=== PATIENT | female | born 1975 | race Caucasian/White ===

== ENCOUNTER 2016-08-15 16:23 | Inpatient (IN) | payer MEDICAID ==
[~2016-08-15] VITALS: Ht 157.5 cm; Wt 116.8 kg
[2016-08-15 17:46] LABS: ADD SCAN DIFF NO
[2016-08-15 17:50] LABS: BASOPHILS % 0.4 % (0.0-2.0); EOSINOPHILS # 0.1 10^3/ul (0.0-0.5); EOSINOPHILS % 1.7 % (0.0-7.0); HEMATOCRIT 36.5 % (37.0-47.0); HEMOGLOBIN 12.8 g/dl (12.0-16.0); LYMPHOCYTES # 1.7 10^3/ul (0.8-2.9); LYMPHOCYTES % 24.7 % (15.0-51.0); MEAN CORPUSCULAR HGB CONC 35.1 g/dl (32.0-37.0); MEAN CORPUSCULAR VOLUME 96.8 fl (82.0-101.0); MEAN PLATELET VOLUME 9.7 fl (7.4-10.4); MONOCYTE # 0.8 10^3/ul (0.3-0.9); MONOCYTES % 10.7 % (0.0-11.0); NEUTROPHIL # 4.4 10^3/ul (1.6-7.5); NEUTROPHILS % 62.2 % (39.0-77.0); PLATELET COUNT 213 10^3/UL (140-415); RED BLOOD COUNT 3.77 10^6/ul (4.20-5.40); RED CELL DISTRIBUTION WIDTH 12.5 % (11.5-14.5)
--- NOTE | 2016-08-15 17:50 | RADRPT ---
PROCEDURE: US OB biophysical profile. CLINICAL INDICATION: decreased movements, PIH TECHNIQUE: Multiple sonographic images of the pelvis were obtained. The images were reviewed on a PACS workstation. COMPARISON: No prior studies are available for comparison. FINDINGS: There is a single viable intrauterine gestation. Cardiac activity is present with 156 beats per min [place]. There is a vertex presentation. The placenta is posterior. There is no evidence of placental abruption. There is a normal amount of amniotic fluid with an MISTY = 13.1 cm. Biophysical profile: movement 2/2 tone 2/2. breathing 2/2 MISTY 2/2 Total 10/24 RPTAT: AA . IMPRESSION: Normal biophysical profile. . .Alonso Parham MD, Date Time Electronically viewed and signed by .Alonso Parham MD, MD on 08/15/2016 17:50 .S/
--- NOTE | 2016-08-15 18:25 | HP ---
DATE OF ADMISSION: 08/15/2016 HISTORY OF PRESENT ILLNESS: A 40-year-old female 1, para 0, estimated date of delivery 09/12/2016, at 36 weeks' gestation, was admitted due to elevated blood pressure. The patient was noted to have blood pressure of 149/ 94 in the clinic. The patient denies any headache, visual disturbance, or epigastric pain. PAST MEDICAL HISTORY: Unremarkable. ALLERGIES: NO KNOWN ALLERGIES. FAMILY HISTORY: Diabetes. COURSE: Significant for gestational diabetes controlled by metformin. PHYSICAL EXAMINATION: VITAL SIGNS: The patient is afebrile. Her blood pressure is 130s to 140s systolic, diastolic 80s and 90s. HEAD, NECK AND CHEST: Within normal limits. ABDOMEN: Soft, nontender and gravid. EXTREMITIES: Within normal limits. NEUROLOGIC Within normal limits. IMPRESSION: at 36 weeks, gestational diabetes, rule out preeclampsia. PLAN: Admit. -induced hypertension panel and 24-hour urine collection. Dictated By: JEY GARCIA/AGGIE Conf#: [id number] DID#: [id number] MTDD
[2016-08-15 18:26] VITALS: BP 137/80; PULSE 67; RESP 24; Ht 157.5 cm; Wt 116.8 kg
[2016-08-15] MEDS ORDERED: PRENAT PO (18:29)
[2016-08-15] MEDS ORDERED: METF500T4 PO (18:29)
[2016-08-15] MEDS ORDERED: FERR325C PO (18:29)
[2016-08-15] MEDS ORDERED: ONDANSETRON 4 MG INJ IV PRN (18:30)
[2016-08-15] MEDS ORDERED: ACETAMINOPHEN 325 MG TAB PO PRN (18:30)
[2016-08-15] MEDS ORDERED: CALC600T11 PO (18:30)
[2016-08-15 18:36] LABS: ALBUMIN 3.7 g/dl (3.3-4.9); ALBUMIN/GLOBULIN RATIO 1.08; BILIRUBIN,INDIRECT 0.2 mg/dl (0-1.1); BILIRUBIN,TOTAL 0.2 mg/dl (0.2-1.3); CALCIUM 9.2 mg/dl (8.4-10.2); CREATININE 0.52 mg/dl (0.44-1.00); POTASSIUM 3.8 mmol/L (3.5-5.1); TOTAL PROTEIN 7.1 g/dl (6.1-8.1); URIC ACID 4.3 mg/dl (3.1-7.9)
[2016-08-15] MEDS ORDERED: GLUCOSE GEL 15 GRAM TUBE PO PRN ×2 (19:00)
[2016-08-15] MEDS ORDERED: DEXTROSE 50% 50 ML SYRINGE IV PRN ×2 (19:00)
[2016-08-15] MEDS ORDERED: GLUCAGON 1 MG INJ IM PRN (19:00)
[2016-08-15] MEDS ORDERED: GLUCOSE GEL 15 GRAM TUBE BUCCAL PRN (19:00)
--- NOTE | 2016-08-15 19:29 | TRIAGE ---
OB Triage Datetime Report Generated by CPN: 08/15/2016 19:29 Datetime: 08/15/2016 18:09 Stage of : OB Triage Maternal Assessment Level of Consciousness: Fully Conscious DTR's/Clonus: DTRs 2+; No Clonus Headache: Denies Blurred Vision: No Respiratory Effort: Unlabored; Regular Rhythm; Equal Expansion Breath Sounds, Left: Clear and Equal Breath Sounds, Right: Clear and Equal Nausea/Vomiting: Denies RUQ Epigastric Pain: Denies Lower Extremities Edema: Bilateral Lower Extremities Degree: 2+ Upper Extremities Edema: None Degree: None Facial Edema: None Temperature Route: Axillary Fall Risk Assessment History of Falling: (0) No Secondary Diagnosis: (0) No Ambulatory Aid: (0) Bedrest/Nurse Assist IV Therapy: (0) No Gait: (0) Normal/Bedrest/Immobile Mental Status: (0) Oriented to Own Ability Fall Score: 0 Fall Risk Score Definition: No Risk: No action required Datetime: 08/15/2016 18:07 Time of Arrival: 08/15/2016 16:19 EGA: 36.0 Arrived By: Ambulatory Arrived From: Home Chief Complaint: CAME IN ORDERS TO R/O PIH Movement: Present Contractions: Denies/Absent Rupture of Membranes: Denies Vaginal Bleeding: None Vaginal Discharge: Denies Recent Sexual Intercouse: Denies Abdominal Trauma: Not Applicable Patient Complaints: None Time Provider Notified: 08/15/2016 18:08 Provider Notified: DR. PONCE Initial Plan: NST , CMP, CBC, BPP, URIC ACID AND UA Datetime: 08/15/2016 18:04 Stage of : Antepartum Labor Evaluation Frequency: IRREG Monitor Mode: External Quality: Moderate Pattern: Normal: <= 5 Contractions in 10 Minutes Resting Tone Harvest: Relaxed Heart Rate FHR Baseline Rate: 135 Monitor Mode: External US Variability: Moderate 6-25 bpm Accelerations: 15X15 Decelerations: None Category: Category I
[2016-08-15] MEDS: ACCU-CHEK XX SCH (21:43)
[2016-08-15] MEDS: metFORMIN 500 MG TAB PO SCH (21:45)
[2016-08-15 22:04] LABS: ADD UMIC NO; URINE BILIRUBIN (Dip) NEGATIVE (NEGATIVE); URINE BLOOD (Dip) NEGATIVE (NEGATIVE); URINE COLOR LT. YELLOW (YELLOW); URINE GLUCOSE (Dip) NEGATIVE (NEGATIVE); URINE KETONES (Dip) 3+ (NEGATIVE); URINE LEUKOCYTE ESTERASE (Dip) NEGATIVE (NEGATIVE); URINE NITRITE (Dip) NEGATIVE (NEGATIVE); URINE TOTAL PROTEIN (Dip) NEGATIVE (NEGATIVE); URINE UROBILINOGEN (Dip) 0.2 E.U./dL (0.1-1.0)
[2016-08-16] MEDS: ACCU-CHEK XX SCH ×4 (08:20→20:07)
[2016-08-16] MEDS: MULTIVIT/MIN/FOLATE/IRON/PREN TAB PO SCH (11:08)
[2016-08-16] MEDS: FERROUS SULFATE (EC) 325 MG TAB PO SCH (11:08)
--- NOTE | 2016-08-16 20:32 | QN ---
Documentation Comment No complaint Afebrile BP 130's-170's/80's-90's Strip Reactive Plt, ALT and AST normal Await 24 hour urine collection Perinatology consult. JEY PONCE MD August 16, 2016 20:32
[2016-08-16 20:43] LABS: SCRET 0.52 mg/dl (0.44-1.00)
[2016-08-16] MEDS: metFORMIN 500 MG TAB PO SCH (21:17)
--- NOTE | 2016-08-16 23:08 | NSTRPT ---
NST Information Datetime Report Generated by CPN: 08/16/2016 23:08 Datetime: 08/15/2016 08:47 NST Information EGA: 36.0 Test Number: 6 Time on Monitor: 08/15/2016 09:08 Time off Monitor: 08/15/2016 09:31 NST Duration (Min): 23 Reason for NST: Diabetes Mellitus; Other Reason for NST Other: A2DM, Elevated Inhibin Test and Monitor Explained: Monitor Explained; Test Explained; Verbalized Understanding Pulse: 68 Resp: 16 SBP: 139 DBP: 84 Test Evaluation NST Interventions: Reposition Patient Patient States Movement: Present Contraction Frequency: x1, denies FHR Baseline : 130 Variability: Moderate 6-25bpm Accelerations: 15X15 Decelerations: None FHR Category: Category I NST Results: Reactive Comments: To u/s, MISTY 16.6cm, cephalic FBS 90 [id number] undelivered with labor precautions, kick count instructions reviewed, and follow up NST appt given. States understanding and denies further questions at this time. Electronically Signed By E-Signature: with User ID: [id number] Datetime: 08/08/2016 08:05 NST Information EGA: 35.0 NST Duration (Min): 32 Datetime: 08/04/2016 08:08 NST Information EGA: 34.3 NST Duration (Min): 29 Datetime: 08/01/2016 08:19 NST Information EGA: 34.0 NST Duration (Min): 26 Datetime: 07/27/2016 08:11 NST Information EGA: 33.2 NST Duration (Min): 22 Datetime: 07/24/2016 08:38 NST Information EGA: 32.6 Datetime: 07/24/2016 08:21 NST Duration (Min): 47
[2016-08-17] MEDS: ACCU-CHEK XX SCH (07:44)
[2016-08-17] MEDS: FERROUS SULFATE (EC) 325 MG TAB PO SCH (09:41)
[2016-08-17] MEDS: MULTIVIT/MIN/FOLATE/IRON/PREN TAB PO SCH (09:41)
--- NOTE | 2016-08-17 14:41 | DS ---
DATE OF ADMISSION: 08/15/2016 DATE OF DISCHARGE: 08/17/2016 ADMITTING DIAGNOSIS: Rule out preeclampsia. HISTORY: A 40-year-old female 1, para 0, estimated date of delivery 09/12/2016, at 36 weeks ' gestation was admitted due to elevated blood pressure. The patient's course is significa nt for gestational diabetes. The patient was admitted on 08/15/2016. The patient had workup with p regnancy-induced hypertension panel and 24-hour urine collection. The patient did not have any symp toms of severe features of preeclampsia. The results of the 24-hour urine collection: Total protei n over 500. Liver enzymes and platelets have been normal. The patient was evaluated by perinatolog ist, Dr. Rick, on 08/17/2016 and recommendation was to discharge the patient home and to deliver th e patient at 37 weeks. The patient is discharged on 08/18/2015. CONDITION ON DISCHARGE: Stable. DISCHARGE INSTRUCTIONS: 1. Diet: 2000 calorie ADA diet. 2. Activity: As tolerated. MEDICATIONS: Continue with: 1. Metformin. 2. vitamins. 3. Ferrous sulfate. FOLLOWUP: Follow up in antepartum unit on 08/18/2016. FINAL DIAGNOSES: 1. , not delivered. 2. Gestational diabetes. 3. Preeclampsia. Dictated By: JEY GARCIA/AGGIE Conf#: [id number] DID#: [id number]
== END 2016-08-17 14:50 | disposition home or self-care (01) | DRG 781 ==
LOC: OBT 16:23 → L-D 16:23 → OBT 18:05 → L-D 18:05 → OBG 20:33
PROVIDERS: ADMIT Obstetrics & Gynecology; ATTEND Obstetrics & Gynecology
DX: O14.93 Unspecified pre-eclampsia, third trimester (principal); O24.419 Gestational diabetes mellitus in pregnancy, unspecified control; O09.523 Supervision of elderly multigravida, third trimester; Z3A.36 36 weeks gestation of pregnancy
CPT/HCPCS: 76818; 80053; 81003; 82575; 82962; 84156; 84560; 85025

== ENCOUNTER 2016-08-22 08:00 | Inpatient (IN) | payer MEDICAID ==
[~2016-08-22] VITALS: Ht 157.5 cm; Wt 113.0 kg
[~2016-08-22 08:00] MED LIST: CALC600T11 PO; FERR325C PO; METF500T4 PO; PRENAT PO
[2016-08-22] MEDS ORDERED: BUTORPHANOL 2 MG INJ IV PRN (08:30)
[2016-08-22] MEDS ORDERED: MISOPROSTOL 200 MCG TAB PR PRN (08:30)
[2016-08-22] MEDS ORDERED: LACTATED RINGER'S 1,000 ML IV PRN (08:30)
[2016-08-22] MEDS ORDERED: METHYLERGONOVINE 0.2 MG INJ IM PRN (08:30)
[2016-08-22] MEDS ORDERED: AMPICILLIN 2 GM/NS (PMX) 100 ML IV ONE (08:30)
[2016-08-22] MEDS ORDERED: OXYTOCIN 30 UNITS/LR 500 ML IV PRN (08:30)
[2016-08-22] MEDS ORDERED: LIDOCAINE 1% (MPF) 30 ML INJ INJ PRN (08:30)
[2016-08-22] MEDS ORDERED: OXYTOCIN 30 UNITS/LR 500 ML IV SCH ×2 (08:30)
[2016-08-22] MEDS ORDERED: CARBOPROST 250 MCG INJ IM PRN (08:30)
[2016-08-22] MEDS: LACTATED RINGER'S 1,000 ML IV SCH ×2 (08:56→14:13)
[2016-08-22 09:20] LABS: ADD SCAN DIFF NO
[2016-08-22 09:24] LABS: BASOPHILS % 0.6 % (0.0-2.0); EOSINOPHILS # 0.1 10^3/ul (0.0-0.5); EOSINOPHILS % 1.8 % (0.0-7.0); HEMATOCRIT 34.8 % (37.0-47.0); HEMOGLOBIN 12.5 g/dl (12.0-16.0); LYMPHOCYTES # 1.8 10^3/ul (0.8-2.9); LYMPHOCYTES % 26.7 % (15.0-51.0); MEAN CORPUSCULAR HEMOGLOBIN 34.5 pg (29.0-33.0); MEAN CORPUSCULAR HGB CONC 35.9 g/dl (32.0-37.0); MEAN CORPUSCULAR VOLUME 96.1 fl (82.0-101.0); MEAN PLATELET VOLUME 9.9 fl (7.4-10.4); MONOCYTE # 0.7 10^3/ul (0.3-0.9); MONOCYTES % 11.1 % (0.0-11.0); NEUTROPHIL # 3.9 10^3/ul (1.6-7.5); NEUTROPHILS % 59.3 % (39.0-77.0); PLATELET COUNT 217 10^3/UL (140-415); RED BLOOD COUNT 3.62 10^6/ul (4.20-5.40); RED CELL DISTRIBUTION WIDTH 12.2 % (11.5-14.5); WHITE BLOOD COUNT 6.6 10^3/ul (4.8-10.8)
[2016-08-22 09:46] LABS: INR 0.95; PARTIAL THROMBOPLASTIN TIME 26.9 Sec (25.0-35.0); PROTIME 12.7 Sec (12.2-14.2)
[2016-08-22] MEDS: MISOPROSTOL 25 MCG CAPSULE PO SCH ×4 (10:11→22:27)
[2016-08-22 11:00] LABS: ALBUMIN 3.6 g/dl (3.3-4.9); ALBUMIN/GLOBULIN RATIO 1.09; BILIRUBIN,INDIRECT 0.4 mg/dl (0-1.1); BILIRUBIN,TOTAL 0.4 mg/dl (0.2-1.3); CALCIUM 8.9 mg/dl (8.4-10.2); CREATININE 0.48 mg/dl (0.44-1.00); TOTAL PROTEIN 6.9 g/dl (6.1-8.1); URIC ACID 4.5 mg/dl (3.1-7.9)
[2016-08-22 12:04] VITALS: Ht 157.5 cm; Wt 113.0 kg
[2016-08-22 13:18] LABS: ADD UMIC NO; URINE BILIRUBIN (Dip) NEGATIVE (NEGATIVE); URINE BLOOD (Dip) NEGATIVE (NEGATIVE); URINE COLOR LT. YELLOW (YELLOW); URINE GLUCOSE (Dip) NEGATIVE (NEGATIVE); URINE KETONES (Dip) 15 (NEGATIVE); URINE LEUKOCYTE ESTERASE (Dip) NEGATIVE (NEGATIVE); URINE NITRITE (Dip) NEGATIVE (NEGATIVE); URINE TOTAL PROTEIN (Dip) NEGATIVE (NEGATIVE); URINE UROBILINOGEN (Dip) 0.2 E.U./dL (0.1-1.0)
[2016-08-22] MEDS: AMPICILLIN 1 GM/NS (PMX) 50 ML IV SCH ×3 (14:00→22:27)
[2016-08-22] MEDS: DEXTROSE 5%-LR 1,000 ML IV SCH ×2 (14:20→22:27)
--- NOTE | 2016-08-22 20:22 | HP ---
Date/Time of Note Date/Time of Note DATE: 08/22/16 TIME: 20:18 OB - History Hx of Present Chief Complaint: induction of labor Estimated Due Date: Sep 12, 2016 : 1 Para: 0 Spontaneous : 0 Therapeutic : 0 Care: Good Care Ultrasounds: Normal mid trimester US Obstetrical Complications: Gestational Diabetes, Pre-eclampsia Medical Complications: None Past Family/Social History * Past Medical, Surgical, Family and Obstetric Histories reviewed from chart. GBS Status: Positive OB Admission Exam Physical Exam HEENT: WNL Heart: Rhythm Normal Lungs: Clear Abdomen: WNL Extremities: Normal Cervical Dilatation: None Effacement: 25% Station: -2 Membranes: Intact Heart Rate: 130's Accelerations: Accelerations Present Decelerations: No Decelerations Varibility: Moderate Last 72 hourBlood Glucose Bedside Glucose - 72 Hours Test 08/22/16 14:18 08/22/16 18:19 Bedside Glucose 70mg/dL (70-220) 79mg/dL (70-220) Last 72 hours Lab Results CBC & BMP 08/22/16 08:50 Liver Function Test 08/22/16 08:50 Alanine Aminotransferase (ALT/SGPT) 34 Albumin 3.6 Alkaline Phosphatase 149 H Aspartate Amino Transf (AST/SGOT) 23 Direct Bilirubin 0.00 Total Protein 6.9 OB Assessment/Plan Reason for admission: induction of labor Plan: Induction Induction Method: per Misoprostol Protocol JEY PONCE MD Aug 22, 2016 20:22
[2016-08-23] MEDS: AMPICILLIN 1 GM/NS (PMX) 50 ML IV SCH ×2 (02:17→05:47)
[2016-08-23] MEDS: MISOPROSTOL 25 MCG CAPSULE PO SCH (02:17)
[2016-08-23] MEDS: DEXTROSE 5%-LR 1,000 ML IV SCH (02:19)
[2016-08-23] MEDS: LACTATED RINGER'S 1,000 ML IV SCH ×3 (02:19→18:21)
[2016-08-23] MEDS ORDERED: EPHEDrine SULFATE 50 MG/5 ML SYG ONE (07:00)
[2016-08-23] MEDS ORDERED: METHYLERGONOVINE 0.2 MG INJ IM PRN ×2 (08:30→13:30)
[2016-08-23] MEDS ORDERED: MISOPROSTOL 200 MCG TAB PR PRN ×2 (08:30→13:30)
[2016-08-23] MEDS ORDERED: OXYTOCIN 30 UNITS/LR 500 ML IV PRN ×2 (08:30→13:30)
[2016-08-23] MEDS ORDERED: CARBOPROST 250 MCG INJ IM PRN ×2 (08:30→13:30)
[2016-08-23] MEDS ORDERED: morphine SULFATE/PF (10 MG/10 ML) INJ ONE (09:00)
[2016-08-23] MEDS ORDERED: FENTAnyl 50 MCG/ML VIAL ONE (09:00)
[2016-08-23] MEDS ORDERED: PHENYLephrine (100 MCG/ML) 5ML SYG ONE (09:01)
[2016-08-23] MEDS ORDERED: ONDANSETRON 4 MG INJ ONE (09:01)
[2016-08-23] MEDS ORDERED: DEXAMETHASONE 4 MG/ML 1 ML INJ ONE (09:01)
[2016-08-23] MEDS ORDERED: CEFAZOLIN 2 GM/50 ML (PMX) 50 ML IVPB ONE (09:03)
--- NOTE | 2016-08-23 09:04 | QN ---
Documentation Comment Patient has received Cytotec for induction of labor for 24 hours. Cervix is closed and unfavorable. Patient is counseled about her options of management with continued induction or delivery by primary . Risks and bemefits explained to the patient who states she understands and would like to deliver by primary . JEY PONCE MD Aug 23, 2016 09:04
[2016-08-23] MEDS ORDERED: CEFAZOLIN 1 GM INJ ONE (09:35)
[2016-08-23] MEDS ORDERED: CEFAZOLIN 3 GM in DEXTROSE 5% 100 ML IV SCH (10:00)
[2016-08-23] MEDS ORDERED: DIPHENHYDRAMINE 50 MG INJ IV PRN (10:30)
[2016-08-23] MEDS ORDERED: PROCHLORPERAZINE 10 MG INJ IV PRN (10:30)
[2016-08-23] MEDS ORDERED: ZOLPIDEM 5 MG TAB PO PRN (10:30)
[2016-08-23] MEDS ORDERED: NALOXONE (0.4 MG/ML) INJ IV PRN (10:30)
[2016-08-23] MEDS ORDERED: HYDROmorphONE 1 MG/ML SYG IV PRN ×2 (10:30)
[2016-08-23] MEDS ORDERED: ONDANSETRON 4 MG INJ IV PRN (10:30)
--- NOTE | 2016-08-23 10:46 | OPR ---
DATE OF OPERATION: 08/23/2016 PREOPERATIVE DIAGNOSIS: at 37 weeks and 1 day with gestational diabetes, preeclampsia and failed induction. POSTOPERATIVE DIAGNOSIS: at 37 weeks and 1 day with gestational diabetes, preeclampsia an d failed induction. OPERATION PERFORMED: Primary low transverse section. SURGEON: Jey Thompson MD REPRESENTATIVE PERSONAL SERVICE: Mary Robertson MD ANESTHESIA: Spinal. ANESTHESIOLOGIST: Yaniv Bird DO PROCEDURE: The patient was taken to the operating room and placed on the operating table. After stauffer ccessful spinal anesthesia was given, the patient was placed in supine position. The area was prepa red and draped in the usual sterile fashion. Spinal anesthesia was tested and was satisfactory. Us ing a scalpel, Pfannenstiel incision was made about 2 fingerbreadths above the symphysis pubis. The incision was carried to the fascia. The fascia was incised and extended bilaterally with Bovie. T wo Robert's were used to separate the fascia from the muscle. The muscle was dissected down to the peritoneum. The peritoneum was bluntly entered. Using a scalpel, a small transverse incision was m chelita in the lower segment of the uterus. Upon entering the uterine cavity, bandage scissors were ins erted to extend the incision bilaterally, curved up. Baby was delivered from cephalic presentation. After suctioning clear of amniotic fluid, the baby was handed off to the team in [facility]. Apgars were 9 and 9. Placenta was delivered without difficulty. The uterus was closed with #1 Monocryl continuous locked. After assuring hemostasis, both ovaries and tubes were inspected, all looked normal. The peritoneal cavity was irrigated with warm saline. The peritoneum was closed wit h 2-0 Vicryl continuous. The fascia was closed with #1 Vicryl continuous in 2 segments. The subcut aneous tissue was reapproximated with 2-0 plain. The skin was closed with idalia. ESTIMATED BLOOD LOSS: 500 mL. COMPLICATIONS: None. COUNTS: All counts were correct. Dictated By: JEY THOMPSON MD GD/NTS Conf#: [id number] DID#: [id number]
[2016-08-23] MEDS: KETOROLAC 30 MG INJ IV PRN (11:36)
[2016-08-23 13:15] VITALS: BP 147/84; PULSE 68; RESP 18
[2016-08-23] MEDS ORDERED: OXYCODONE/ACETAMINOPHEN (5/325) TAB PO PRN ×2 (13:30)
[2016-08-23] MEDS ORDERED: LANOLIN 7 GM TUBE TOP PRN (13:30)
[2016-08-23] MEDS: IBUPROFEN 800 MG TAB PO SCH ×2 (14:00→21:49)
[2016-08-23 14:15] VITALS: BP 137/70; PULSE 67
[2016-08-23] MEDS: OXYTOCIN 30 UNITS/LR 500 ML IV SCH ×2 (14:16→21:11)
[2016-08-23 17:04] VITALS: BP 140/82; PULSE 68; RESP 18
[2016-08-23 19:45] VITALS: BP 120/68; PULSE 68; RESP 17
[2016-08-23] MEDS: SENNA/DOCUSATE NA (8.6MG/50MG) TAB PO SCH (21:21)
[2016-08-23 23:30] VITALS: BP 120/64; PULSE 84; RESP 17
[2016-08-24] MEDS: LACTATED RINGER'S 1,000 ML IV SCH ×2 (01:59→23:11)
[2016-08-24 03:30] VITALS: BP 122/72; PULSE 72; RESP 17
[2016-08-24] MEDS: IBUPROFEN 800 MG TAB PO SCH ×3 (05:23→22:05)
[2016-08-24 08:10] VITALS: BP 121/66; PULSE 77; RESP 20
[2016-08-24] MEDS: SENNA/DOCUSATE NA (8.6MG/50MG) TAB PO SCH ×2 (08:42→22:05)
[2016-08-24] MEDS: KETOROLAC 30 MG INJ IV PRN (08:43)
[2016-08-24 09:49] LABS: ADD SCAN DIFF NO; BASOPHILS % 0.5 % (0.0-2.0); EOSINOPHILS # 0.1 10^3/ul (0.0-0.5); EOSINOPHILS % 1.4 % (0.0-7.0); HEMATOCRIT 30.1 % (37.0-47.0); HEMOGLOBIN 10.4 g/dl (12.0-16.0); LYMPHOCYTES # 1.5 10^3/ul (0.8-2.9); LYMPHOCYTES % 23.7 % (15.0-51.0); MEAN CORPUSCULAR HEMOGLOBIN 34.3 pg (29.0-33.0); MEAN CORPUSCULAR HGB CONC 34.6 g/dl (32.0-37.0); MEAN CORPUSCULAR VOLUME 99.3 fl (82.0-101.0); MEAN PLATELET VOLUME 9.5 fl (7.4-10.4); MONOCYTE # 0.5 10^3/ul (0.3-0.9); MONOCYTES % 8.6 % (0.0-11.0); NEUTROPHIL # 4.1 10^3/ul (1.6-7.5); NEUTROPHILS % 65.3 % (39.0-77.0); PLATELET COUNT 164 10^3/UL (140-415); RED BLOOD COUNT 3.03 10^6/ul (4.20-5.40); RED CELL DISTRIBUTION WIDTH 12.6 % (11.5-14.5); WHITE BLOOD COUNT 6.3 10^3/ul (4.8-10.8)
[2016-08-24 16:00] VITALS: BP 127/75; PULSE 73; RESP 19
[2016-08-24 16:01] VITALS: BP 148/82; PULSE 93; RESP 19
--- NOTE | 2016-08-24 20:04 | QN ---
Documentation Comment No complaint Afebrile VSS Abdomen soft ND Stable Continue with present care. JEY PONCE MD Aug 24, 2016 20:04
[2016-08-24 20:30] VITALS: BP 116/89; PULSE 86; RESP 19
[2016-08-24] MEDS: ACCU-CHEK XX SCH (22:00)
[2016-08-25 04:00] VITALS: BP 140/71; PULSE 69; RESP 18
[2016-08-25] MEDS: IBUPROFEN 800 MG TAB PO SCH ×3 (05:59→22:31)
[2016-08-25] MEDS: ACCU-CHEK XX SCH ×4 (07:45→20:05)
[2016-08-25 08:00] VITALS: BP 133/78; PULSE 68; RESP 19
[2016-08-25] MEDS: SENNA/DOCUSATE NA (8.6MG/50MG) TAB PO SCH ×2 (09:03→20:29)
[2016-08-25 16:00] VITALS: BP 122/72; PULSE 81; RESP 19
[2016-08-25 19:50] VITALS: BP 140/71; PULSE 80; RESP 18
--- NOTE | 2016-08-25 19:58 | QN ---
Documentation Comment No complaint Afebrile VSS Abdomen soft Stable Continue with present care. JEY PONCE MD Aug 25, 2016 19:58
[2016-08-26 04:53] VITALS: BP 121/64; PULSE 72; RESP 18
[2016-08-26] MEDS: ACCU-CHEK XX SCH ×3 (06:00→15:00)
[2016-08-26] MEDS: IBUPROFEN 800 MG TAB PO SCH ×2 (06:24→13:51)
[2016-08-26 08:20] VITALS: BP 120/65; PULSE 73; RESP 16
[2016-08-26] MEDS ORDERED: DIPHTH/TET/ACEL PERTUSS (ADULT) 0.5 ML VIAL IM* ONE (09:00)
[2016-08-26] MEDS: SENNA/DOCUSATE NA (8.6MG/50MG) TAB PO SCH (09:34)
[2016-08-26 16:00] VITALS: BP 119/85; PULSE 73; RESP 16
--- NOTE | 2016-08-27 03:59 | DS ---
DATE OF ADMISSION: 08/22/2016 DATE OF DISCHARGE: 08/26/2016 ADMITTING DIAGNOSIS: at 37 weeks with gestational diabetes and preeclampsia. HISTORY OF PRESENT ILLNESS: A 40-year-old female, 1, para 0 at the time of admission, para 1 at time of discharge, at 37 weeks' gestation, was admitted for induction of labor due to preeclamp jayden. Patient also had gestational diabetes. Patient was admitted on 08/22/2016. Patient was given induction of labor. After 24 hours of induction, there was no cervical change. Patient was counse led, but patient requested delivery by primary . On 08/23/2016, after obtaining informed c onsent, the patient underwent a primary low transverse section. Patient's operation was un complicated. Postoperatively, patient was given clear liquid diet, which was advanced to regular di et, which she tolerated well. The patient discharged on postop day #3 after having had adequate shana dder and bowel function. CONDITION ON DISCHARGE: Stable. DISCHARGE INSTRUCTIONS: DIET: Regular. ACTIVITIES: Pelvic rest and no strenuous activities. MEDICATIONS: 1. Motrin as needed for pain. 2. Continue with vitamins. 3. Ferrous sulfate. FOLLOWUP: In clinic in 3 days. FINAL DIAGNOSES: 1. Term , delivered by section. 2. Gestational diabetes. 3. Preeclampsia. 4. Failed induction. 5. Mother with single liveborn. Dictated By: JEY GARCIA/AGGIE Conf#: [id number] DID#: [id number]
== END 2016-08-26 18:29 | disposition home or self-care (01) | DRG 766 ==
LOC: L-D 08:14 → PP1 08-23 13:13
PROVIDERS: ADMIT Obstetrics & Gynecology; ATTEND Obstetrics & Gynecology
PROC: 3E0D7GC Introduction of Other Therapeutic Substance into Mouth and Pharynx, Via Natural or Artificial Opening (ICD-10-PCS; 2016-08-22)
PROC: 10D00Z1 Extraction of Products of Conception, Low, Open Approach (ICD-10-PCS; principal; 2016-08-23 09:00)
DX: O14.94 Unspecified pre-eclampsia, complicating childbirth (principal); O24.429 Gestational diabetes mellitus in childbirth, unspecified control; Z3A.37 37 weeks gestation of pregnancy; Z37.0 Single live birth; O61.0 Failed medical induction of labor
CPT/HCPCS: 80053; 81003; 82962; 84560; 85025; 85610; 85730; 86592; 86850; 86900; 86901; 87340; 88307; 90715; 94760; 99464; J0290; J0690; J1100; J1885; J2274; J2370; J2405; J2590; J3010; J7120; J7121